=== PATIENT | female | born 1940 | race Caucasian/White ===

== ENCOUNTER → 2019-06-14 09:25 | Outpatient (BNVA) | payer MEDICARE, SELFPAY | PROVIDERS: Family Provider Registered Nurse; PCP Registered Nurse; Referring Provider Internal Medicine Rheumatology; Visit Provider Internal Medicine Rheumatology | DX: M05.79 Rheumatoid arthritis with rheumatoid factor of multiple sites without organ or systems involvement (principal); Z79.899 Other long term (current) drug therapy; Z11.59 Encounter for screening for other viral diseases; Z11.1 Encounter for screening for respiratory tuberculosis; Z72.89 Other problems related to lifestyle | CPT/HCPCS: 36415; 80076; 82565; 85025; 85651; 86140; 86480; 86704; 86706; 86803 ==

== ENCOUNTER → 2019-06-14 09:36 | Outpatient (BNVA) | payer MEDICARE, SELFPAY | PROVIDERS: Family Provider Registered Nurse; PCP Registered Nurse; Referring Provider Internal Medicine Rheumatology | DX: M05.79 Rheumatoid arthritis with rheumatoid factor of multiple sites without organ or systems involvement (principal); Z79.899 Other long term (current) drug therapy | CPT/HCPCS: 85025 ==

== ENCOUNTER → 2019-09-23 10:05 | Outpatient (BNVA) | payer MEDICARE, SELFPAY | PROVIDERS: Family Provider Registered Nurse; PCP Registered Nurse; Visit Provider Internal Medicine Rheumatology | DX: Z79.899 Other long term (current) drug therapy (principal); Z11.59 Encounter for screening for other viral diseases; Z72.89 Other problems related to lifestyle | CPT/HCPCS: 36415; 80076; 82565; 85025; 85651; 86140; 87340 ==

== ENCOUNTER → 2019-10-28 14:37 | Outpatient (BNVA) | payer MEDICARE, SELFPAY | PROVIDERS: Family Provider Registered Nurse; PCP Registered Nurse; Visit Provider Internal Medicine | DX: M06.9 Rheumatoid arthritis, unspecified (principal); Z79.899 Other long term (current) drug therapy | CPT/HCPCS: 99213 ==

== ENCOUNTER → 2019-12-30 13:43 | Outpatient (BNVA) | payer MEDICARE, SELFPAY | PROVIDERS: Family Provider Registered Nurse; PCP Registered Nurse; Visit Provider Internal Medicine | DX: M06.9 Rheumatoid arthritis, unspecified (principal); I10 Essential (primary) hypertension; Z87.891 Personal history of nicotine dependence; Z79.899 Other long term (current) drug therapy | CPT/HCPCS: 80053; 85025; 86140; 99214 ==

== ENCOUNTER → 2020-04-03 10:38 | Outpatient (BNVA) | payer MEDICARE, SELFPAY | PROVIDERS: Family Provider Registered Nurse; PCP Registered Nurse; Visit Provider Internal Medicine Rheumatology | DX: M06.9 Rheumatoid arthritis, unspecified (principal); Z79.899 Other long term (current) drug therapy | CPT/HCPCS: 36415; 80053; 85025 ==

== ENCOUNTER → 2020-04-11 13:01 | Outpatient (BNVA) | payer MEDICARE, SELFPAY | PROVIDERS: Family Provider Registered Nurse; PCP Registered Nurse; Visit Provider Internal Medicine | DX: M06.9 Rheumatoid arthritis, unspecified (principal); I16.0 Hypertensive urgency; I10 Essential (primary) hypertension; Z87.891 Personal history of nicotine dependence | CPT/HCPCS: 99214 ==

== ENCOUNTER 2020-11-24 13:51 | Outpatient (CLI) | payer MEDICARE, SELFPAY ==
--- NOTE | 2020-11-24 14:15 | US_ITS ---
WS: [id number] ULTRASOUND THYROID TECHNIQUE: Ultrasound of the thyroid. CLINICAL INFORMATION: THYROID NODULE/HYPOTHYROIDISM COMPARISON: None. FINDINGS: Thyroid: Right and left thyroid lobes are normal in size with heterogeneous echotexture. Right thyroid lobe: 4.1 cm x 1.6 cm x 1.3 cm Complex cystic nodule right mid thyroid measuring 4.6 x 8.1 x 11 mm. Left thyroid lobe: 4.7 cm x 1.0 cm x 1.0 cm. Ovoid complex cystic lesion left mid thyroid measuring 12 x 6 x 5 mm. Isthmus: 0.2 mm. Cervical lymphadenopathy: None. US/US thyroid [id number] IMPRESSION: 1. Heterogeneous thyroid echotexture bilaterally. 2. No dominant nodules to target for biopsy. 3. Semisolid nodules described above. One in the right mid thyroid and one in the left mid thyroid
== END 2020-11-24 13:52 | disposition home or self-care (01) ==
LOC: US 13:52
PROVIDERS: PCP Family Medicine; Visit Provider Nurse Practitioner Family
DX: E03.9 Hypothyroidism, unspecified (principal); E04.2 Nontoxic multinodular goiter
CPT/HCPCS: 76536

== ENCOUNTER 2021-01-17 06:56 | Outpatient (CLI) | payer MEDICARE, SELFPAY ==
[2021-01-17 07:21] VITALS: BMI 29.7
--- NOTE | 2021-01-17 07:21 | ECG_ITS ---
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 Interpretive Statements NAME OF STUDY: LEXISCAN SESTAMIBI STRESS TEST INDICATION: Chest pain PROCEDURE: At the baseline, the blood pressure was 157/82 mmHg, oxygen saturation 92% with a heart rate of 76 bpm. The electrocardiogram showed normal sinus rhythm, possible old inferior infarct. Old anterior infarct. The Lexiscan was infused over a period of 20 seconds. A total of 0.4 milligrams of Lexiscan was infused. The stress phase was continued for a total of 5 minutes. Heart rate at the end of the stress phase was 93 bpm, oxygen saturation 93% with a blood pressure of 155/75 mmHg. The EKG at the peak infusion revealed no significant ST-T wave changes. The study was terminated due to protocol completion. Sestamibi was injected 20 seconds after the Lexiscan infusion. Blood pressure at the end of the recovery phase was 162/61 mmHg, oxygen saturation 93% with a heart rate of 92 beats per minute. CONCLUSION: 1. No significant EKG changes with the LexiScan infusion. 2. No LexiScan induced chest pain or cardiac arrhythmia. 3. Normal blood pressure and heart rate response. 4. Sestamibi/sestamibi perfusion scan pending; see separate report. Electronically Signed On 01-25-2021 12:48:48 CDT by Isabella Javier M.D. [email or web address]
--- NOTE | 2021-01-17 07:22 | NMCV_ITS ---
NM yovana perf SPECT r/s* [id number] Taylor Lennon Age: 80 Gender: F : 1940 Exam Date: 01/17/2021 08:19 Ordering Phys: Isabella Javier MD ([email or web address]) Technologist: SAQIB Edge Exam Location: [facility] Indications: SHORTNESS OF BREATH on exertion STRESS TEST Please see separate stress test report [facility] for full findings IMAGE PROTOCOL Rest/Stress 1 Lexiscan Day Radiopharmaceutical Dose (mCi) Administration Site Administered by Rest: Tc-99m 10.8 IV SAQIB Guerrero Sestamibi Stress:Tc-99m 32.2 IV SAQIB Guerrero Sestamibi Rest: 17-Jan-2021 60 Discovery 630 Stress: 17-Jan-2021 30 Discovery 630 0.4mg Lexiscan. Supine position only as patient was unable to lay prone. SPECT RESULTS Technical Quality: Excellent Raw Data Analysis: Normal Image Corrections: No attenuation or motion correction applied Summed Stress Score: 33 Summed Rest Score: 26 Summed Difference Score: 7 PERFUSION FINDINGS Large sized perfusion abnormality of severe severity of basal to apical inferior, basal to apical inferolateral, basal to mid inferoseptal, apical septal , apical anterior and apical lateral price on rest images with mild reversibility in mid to apical lateral price on stress images. FUNCTIONAL RESULTS (calculated via Gated SPECT) Stress Image LV EF (%): 39 Stress EDV (mL):99 TID: 0.85 Stress ESV (mL):60 FUNCTIONAL FINDINGS: The left ventricle is normal in size. Transient Ischemia Dilatation of 0.85. The left ventricular ejection fraction is moderately reduced with a value of 39%. There is global hypokinesis more pronounced in inferior, mid to apical lateral and apical price. IMPRESSIONS 1. Large sized partially reversible perfusion abnormality of severe severity of entire inferior, basal to mid inferoseptal, basal to apical lateral, apical septal, apical anterior and apical lateral price. 2. 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 3. The left ventricular ejection fraction is moderately reduced with a value of 39%. 4. There is global hypokinesis more pronounced in inferior, mid to apical lateral and apical price. 5. No prior similar studies to compare. Isabella Javier MD (Electronically Signed) Final Date: 20 January 2021 14:32 S
--- NOTE | 2021-01-17 07:30 | USCV_ITS ---
Taylor Lennon Age: 80 Gender: F : 1940 Exam Date: 01/17/2021 07:35 Ordering Phys: Isabella Javier MD ([email or web address]) Technologist: Exam Location: [facility] [place] Indication: Chest pain BP: 167 / 76 HR: 51 Rhythm: Sinus Technical Quality: Adequate MEASUREMENTS (Male / Female) Normal Values 2D ECHO LV Diastolic Diameter PLAX 3.0 cm 4.2 - 5.9 / 3.9 - 5.3 cm LV Systolic Diameter PLAX 2.5 cm IVS Diastolic Thickness 1.3 cm 0.6 - 1.0 / 0.6 - 0.9 cm IVS Systolic Thickness 1.1 cm LVPW Diastolic Thickness 0.8 cm 0.6 - 1.0 / 0.6 - 0.9 cm LVPW Systolic Thickness 1.2 cm LVOT Diameter 2.1 cm LV Ejection Fraction 2D Teich 38.4 % LV Ejection Fraction MOD 2C 47.1 % LV Ejection Fraction 2C AL 47.1 % LA Diameter 2.9 cm LA Width 3.5 cm LA Height 5.6 cm RA Width 4.2 cm RA Height 5.1 cm Aorta at Sinotubular Diameter 3.4 cm DOPPLER AV Peak Velocity 199.0 cm/s LVOT Peak Velocity 70.0 cm/s AV Area Cont Eq vti 1.6 cm squared AV Area Cont Eq pk 1.2 cm squared MV Area PHT 5.5 cm squared Mitral E to A Ratio 0.9 MV E' Velocity 58.5 cm/s Mitral E to MV E' Ratio 15.2 Mitral E to LV E' Lateral Ratio 12.4 Mitral E to LV E' Septal Ratio 20.0 TR Peak Velocity 208.3 cm/s TR Peak Gradient 17.4 mmHg TV Peak E Velocity 77.0 cm/s Right Atrial Pressure 3.0 mmHg Pulmonary Artery Systolic Pressu 20.4 mmHg FINDINGS Left Ventricle Normal left ventricular cavity size. Moderately decreased left ventricular systolic function. Left ventricular ejection fraction is estimated at 35-40 %. There is mild global hypokinesis with moderate hypokinesis of basal to mid inferoseptal, basal to apical inferior , mid anteroseptal and apical price. Grade II diastolic dysfunction, moderately elevated filling pressures. Right Ventricle Normal right ventricular size and systolic function. Right ventricular systolic pressure 20.4 mmHg. Right Atrium Normal right atrial size. Right atrial pressure estimated at 3 mmHg. Left Atrium Mildly increased left atrial size. Mitral Valve Mildly thickened mitral valve. No mitral valve stenosis. Moderate mitral valve regurgitation. Aortic Valve Aortic valve not well visualized. No aortic valve stenosis. Mild aortic valve regurgitation. Tricuspid Valve Structurally normal tricuspid valve. Trace to mild tricuspid valve regurgitation. Pulmonic Valve Pulmonic valve not well visualized. No pulmonary valve stenosis. Trace pulmonary valve regurgitation. Pericardium No pericardial effusion. Aorta Normal size aortic root and proximal ascending aorta. Normal- sized inferior vena cava with decreased respiratory variation. CONCLUSIONS 1. Normal left ventricular cavity size. Moderately decreased left ventricular systolic function. Left ventricular ejection fraction is estimated at 35-40 %. There is mild global hypokinesis with moderate hypokinesis of basal to mid inferoseptal, basal to apical inferior , mid anteroseptal and apical price. Grade II diastolic dysfunction, moderately elevated filling pressures. 2. Moderate mitral valve regurgitation. 3. Mild aortic valve regurgitation. 4. No prior similar studies to compare. Isabella Javier MD (Electronically Signed) Final Date: 20 January 2021 14:48 S
[2021-01-17] MEDS: cloNIDine 0.1 mg Tablet PO (09:24)
--- NOTE | 2021-01-17 10:29 | PC.NURSE ---
elevated blood pressure confirmed with manual bp. called doc for instructions. received verbal order for meds. waited 30 mins and retook bp. still elevated and pt didnt want to wait any longer. stated i have had this problem since she was a kid. i think this is a lost cause. pt also stated she has an appointment with dr vora next week and they will discuss this then.
--- NOTE | 2021-01-17 10:51 | PC.NURSE ---
after talking to dr vora it was agreed that pt woudl return today for a chemical stress test.
[2021-01-17 11:27] VITALS: BP 162/61; PULSE 92
[2021-01-17] MEDS: regadenoson 0.4 Mg/5 ml Syringe IVP (11:27)
== END 2021-01-17 06:57 | disposition home or self-care (01) ==
LOC: CDL 07:00
PROVIDERS: PCP Family Medicine; Visit Provider Internal Medicine Cardiovascular Disease
DX: I25.10 Atherosclerotic heart disease of native coronary artery without angina pectoris (principal); R07.9 Chest pain, unspecified; I51.9 Heart disease, unspecified; I34.0 Nonrheumatic mitral (valve) insufficiency; I35.1 Nonrheumatic aortic (valve) insufficiency
CPT/HCPCS: 78452; 93017; 93306; A9500; J2785

== ENCOUNTER → 2021-07-11 12:33 | Outpatient (BNVA) | payer MEDICARE, SELFPAY | PROVIDERS: PCP Family Medicine; Visit Provider Internal Medicine Cardiovascular Disease | DX: I50.42 Chronic combined systolic (congestive) and diastolic (congestive) heart failure (principal); I11.0 Hypertensive heart disease with heart failure; Z87.891 Personal history of nicotine dependence; I08.0 Rheumatic disorders of both mitral and aortic valves | CPT/HCPCS: 99213 ==

== ENCOUNTER → 2022-03-06 11:01 | Outpatient (BNVA) | payer MEDICARE, SELFPAY | PROVIDERS: PCP Family Medicine; Referring Provider Registered Nurse; Visit Provider Specialist | DX: M67.431 Ganglion, right wrist (principal) | CPT/HCPCS: 20612; 73110; 80503; 87205; 89050; 99205 ==

== ENCOUNTER → 2022-10-31 08:59 | Outpatient (BNVA) | payer MEDICARE, SELFPAY | PROVIDERS: PCP Family Medicine; Visit Provider Nurse Practitioner Family | DX: E03.9 Hypothyroidism, unspecified (principal); M67.431 Ganglion, right wrist | CPT/HCPCS: 84443 ==

== ENCOUNTER → 2023-01-02 07:33 | Outpatient (BNVA) | payer MEDICARE, SELFPAY | PROVIDERS: PCP Family Medicine; Referring Provider Nurse Practitioner Family; Visit Provider Student in an Organized Health Care Education/Training Program | DX: M67.431 Ganglion, right wrist | CPT/HCPCS: 99213 ==

== ENCOUNTER → 2023-05-28 09:18 | Outpatient (BNVA) | payer MEDICARE, SELFPAY | PROVIDERS: PCP Family Medicine; Visit Provider Family Medicine | DX: I10 Essential (primary) hypertension (principal); E13.9 Other specified diabetes mellitus without complications; E03.9 Hypothyroidism, unspecified; M06.9 Rheumatoid arthritis, unspecified | CPT/HCPCS: 80053; 80061; 83036; 84443; 84550; 85025; 86140 ==

== ENCOUNTER → 2023-11-26 08:25 | Outpatient (BNVA) | payer MEDICARE, SELFPAY | PROVIDERS: PCP Family Medicine; Visit Provider Family Medicine | DX: I10 Essential (primary) hypertension (principal); E78.5 Hyperlipidemia, unspecified; E13.9 Other specified diabetes mellitus without complications; E03.9 Hypothyroidism, unspecified; M06.9 Rheumatoid arthritis, unspecified | CPT/HCPCS: 80053; 80061; 83036; 85025; 86140 ==

== ENCOUNTER → 2024-05-27 09:47 | Outpatient (BNVA) | payer MEDICARE, SELFPAY | PROVIDERS: PCP Family Medicine; Visit Provider Family Medicine | DX: I25.10 Atherosclerotic heart disease of native coronary artery without angina pectoris (principal); E78.5 Hyperlipidemia, unspecified; E13.9 Other specified diabetes mellitus without complications; E03.9 Hypothyroidism, unspecified; M06.9 Rheumatoid arthritis, unspecified | CPT/HCPCS: 80053; 80061; 83036; 84443; 85025; 86140 ==